=== PATIENT | female | born 1950 | race Caucasian/White ===

== ENCOUNTER → 2021-10-28 | Outpatient (CLI) | payer OTHER ==
[2021-10-28 13:22] LABS: BASO # 0.1 K/mm3 (0.0-0.2); BASO % 0.6 % (0.0-2.0); EOS # 0.5 K/mm3 (0.0-0.7); EOS % 5.4 % (0.0-4.0); GRAN # 4.1 K/mm3 (1.4-6.5); GRAN % 43.8 % (42.2-75.2); HEMATOCRIT 41.4 % (37.0-47.0); HEMOGLOBIN 13.4 g/dl (12.5-16.0); LYMPH % 42.2 % (20.0-51.0); MEAN CELL VOLUME 92 fl (80.0-100.0); MEAN CORPUSCULAR HEMOGLOBIN 30 pg (27-31); MEAN CORPUSCULAR HGB CONC 32 g/dl (33.0-37.0); MEAN PLATELET VOLUME 9.7 fl (7.4-10.4); MONO # 0.7 K/mm3 (0.1-0.6); MONO % 7.6 % (1.7-9.3); PLATELET COUNT 326 K/mm3 (130-400); RED BLOOD COUNT 4.51 M/mm3 (4.10-5.30); REDCELL DISTRIBUTION WIDTH-CV 13.4 % (11.5-14.5)
[2021-10-28 13:25] LABS: PH 5 (5-8); URINE APPEARANCE Cloudy (CLEAR/HAZY); URINE COLOR Yellow (YELLOW)
[2021-10-28 13:26] LABS: URINE BILIRUBIN Negative (NEGATIVE); URINE KETONE Negative (NEGATIVE); URINE PROTEIN(semi-quant) 1+ (NEGATIVE)
[2021-10-28 13:27] LABS: URINE BLOOD Negative (NEGATIVE); URINE LEUKOCYTE ESTERASE 2+ (NEGATIVE); URINE NITRATE Negative (NEGATIVE); URINE UROBILINOGEN Negative (NEGATIVE)
[2021-10-28 13:29] LABS: MUCOUS Present (NOT PRESENT); URINE BACTERIA Rare /hpf (NONE SEEN); URINE WBC 20-50 /hpf (0-2)
[2021-10-28 13:35] LABS: COLLECTION METHOD CLEAN CATCH
[2021-10-28 13:40] LABS: BILIRUBIN,TOTAL 0.5 mg/dL (0.2-1.2); CALCIUM 9.9 mg/dL (8.4-10.2); POTASSIUM 4.5 mmol/L (3.5-4.5); TOTAL PROTEIN 7.6 gm/dL (6.2-8.1)
[2021-10-28 13:43] LABS: URINE GLUCOSE Negative (NEGATIVE)
[2021-10-28 14:00] LABS: TSH w REFLEX 2.453 uIU/mL (0.350-4.940)
== END ==
LOC: COL.LAB 12:19
PROVIDERS: Registered Nurse
DX: Z13.9 Encounter for screening, unspecified (principal); R42 Dizziness and giddiness; R06.00 Dyspnea, unspecified; I51.7 Cardiomegaly

== ENCOUNTER → 2021-12-16 | Outpatient (CLI) | payer OTHER | LOC: COL.PUL 07:33 | DX: J45.909 Unspecified asthma, uncomplicated (principal); Z87.891 Personal history of nicotine dependence ==

== ENCOUNTER → 2021-12-29 | Outpatient (CLI) | payer OTHER | LOC: COL.RAD 09:46 | DX: R06.00 Dyspnea, unspecified (principal) ==